=== PATIENT | female | born 1985 | race African-American/Black ===

== ENCOUNTER 2017-07-31 07:00 | Inpatient (IN) | payer OTHER ==
[~2017-07-31] VITALS: Ht 149.9 cm; Wt 3.2 kg
[~2017-07-31 07:00] MED LIST: PRENATAL TABLE1 EAC1 PO
[2017-07-31] MEDS ORDERED: PRENATAL TABLE1 EACH PO (15:27)
[2017-08-03] MEDS ORDERED: Mylicon 125MG PO (09:40)
[2017-08-03] MEDS ORDERED: PREPLUS CA-FE1 EACH PO (09:40)
[2017-08-03] MEDS ORDERED: OXYC1TAB9 PO (09:40)
[2017-08-03] MEDS ORDERED: DOCUSATE SODIU100 MG PO (09:40)
[2017-08-03] MEDS ORDERED: PRENATAL TABLE1 EAC1 PO (09:40)
== END 2017-08-03 16:00 | disposition home or self-care (01) | DRG 766 ==
LOC: OB/GYN 07:00 → O/R 07:00 → OB/GYN 19:00
PROVIDERS: Obstetrics & Gynecology
PROC: 4A1HXCZ Monitoring of Products of Conception, Cardiac Rate, External Approach (ICD-10-PCS; 2017-07-31)
PROC: 0UT70ZZ Resection of Bilateral Fallopian Tubes, Open Approach (ICD-10-PCS; 2017-07-31)
PROC: 10D00Z1 Extraction of Products of Conception, Low, Open Approach (ICD-10-PCS; principal; 2017-07-31 15:00)
DX: O34.211 Maternal care for low transverse scar from previous cesarean delivery (principal); Z3A.39 39 weeks gestation of pregnancy; Z37.0 Single live birth; Z30.2 Encounter for sterilization; Z64.1 Problems related to multiparity

== ENCOUNTER 2021-11-01 06:55 | Day surgery (SDC) | payer OTHER ==
[~2021-11-01 06:55] MED LIST changes: +DOCUSATE SODIU100 MG PO; +Mylicon 125MG PO; +OXYC1TAB9 PO; +PRENATAL TABLE1 EACH PO; +PREPLUS CA-FE1 EACH PO
== END 2021-11-01 17:35 | disposition home or self-care (01) ==
LOC: CIR.AMB 06:55
PROVIDERS: ATTEND Specialist
DX: K42.9 Umbilical hernia without obstruction or gangrene (principal); Z91.013 Allergy to seafood; J45.909 Unspecified asthma, uncomplicated; Z20.822 Contact with and (suspected) exposure to COVID-19